=== PATIENT | male | born 1995 | race Caucasian/White ===

== ENCOUNTER 2017-06-21 08:19 | Emergency (ER) | payer OTHER ==
[2017-06-21 08:28] VITALS: BP 145/70
--- NOTE | 2017-06-21 09:10 | XRAY Report ---
EXAM: LEFT FIRST DIGIT RADIOGRAPHY EXAM DATE: 06/21/2017 08:56 AM. CLINICAL HISTORY: Thumb pain. Thumb injury. COMPARISON: None. TECHNIQUE: 3 views. FINDINGS: Bones: On the frontal view, there is slight cortical irregularity along the proximal third of the lef t first distal phalanx. No other osseous abnormalities. Joints: Normal. No subluxations. Soft Tissues: No radiopaque foreign bodies. IMPRESSION: 1. Possible nondisplaced left first distal phalanx fracture versus normal cortical contour irregulari ty creating artifact. [facility] Referring Provider Line: [phone] SITE ID: [id number]
--- NOTE | 2017-06-21 09:15 | ED Physician Documentation ---
PD HPI UPPER EXT INJURY - Stated complaint Stated Complaint: FINGER INJURY - Chief complaint Chief Complaint: Ext Problem - History obtained from History obtained from: Patient - History of Present Illness Location: Left, Finger (thumb) Type of injury: Crush Where injury occurred: Street Timing - onset: Today Timing - duration: Minutes Timing - details: Abrupt onset, Still present Improved by: Rest Worsened by: Moving, Palpating Associated symptoms: No: Weakness, Numbness, Tingling, Swelling Contributing factors: No: Anticoagulated Similar symptoms before: Diagnosis (subungal hematoma) Recently seen: Not recently seen - Additonal information Additional information: 21-year-old male who slammed his left thumb in a car door this morning and has a broken nail and some pain in his thumb. He states that the thumb does not hurt as much as expected and he has not had much in the way of bleeding. Review of Systems Constitutional: denies: Fever Respiratory: denies: Cough GI: denies: Vomiting Skin: denies: Rash Musculoskeletal: reports: Extremity pain. denies: Neck pain, Back pain Neurologic: denies: Generalized weakness, Focal weakness, Numbness PD PAST MEDICAL HISTORY - Past Medical History Past Medical History: No - Past Surgical History Past Surgical History: No - Present Medications Home Medications: Ambulatory Orders Medication Instructions Recorded Confirmed No Known Home Medications [No 06/21/17 06/21/17 Known Home Medications] - Allergies Allergies/Adverse Reactions: Allergies Allergy/AdvReac Type Severity Reaction Status Date / Time No Known Drug Allergies Allergy Verified 06/21/17 08:26 - Social History Does the pt smoke?: Yes Smoking Status: Current every day smoker - Immunizations Immunizations are current?: Yes PD ED PE NORMAL - Vitals Vital signs reviewed: Yes (hypertensive) - General General: No acute distress, Well developed/nourished - HEENT HEENT: Atraumatic - Respiratory Respiratory: No respiratory distress - Derm Derm: Normal color, Warm and dry, No rash - Extremities Extremities: Other (There is a fracture to the nail on the left thumb nail about mid thumbnail without continued bleeding and no deformitiy. The crack in the nail is aobut 1[address] the nail from the radial edge. ) - Neuro Neuro: No motor deficit, No sensory deficit Eye Opening: Spontaneous Motor: Obeys Commands Verbal: Oriented GCS Score: 15 - Psych Psych: Normal mood, Normal affect Results - Vitals Vitals: Vital Signs - 24 hr 06/21/17 08:23 Temperature 36.5 C Heart Rate 90 Respiratory 18 Rate Blood Pressure 145/70 H O2 Saturation 97 Oxygen O2 Source Room air - Rads (name of study) fingers Radiology: Prelim report reviewed (Impression: 1. Possible nondisplaced left first distal phalange fracture versus normal cortical contour irregularity creating artifact.), EMP read indepedently, See rad report PD MEDICAL DECISION MAKING - ED course Complexity details: reviewed results, re-evaluated patient, considered differential, d/w patient ED course: 21-year-old male is slammed his thumb in the car door and has cracked his nail on his thumb. The crack is partial the nail the nail is otherwise intact and there is no subungual hematoma. Bleeding is controlled and Dermabond was placed over the top of the crack in the nail. X-ray examination of the thumb to my evaluation does not show any evidence of a fracture. Departure - Departure Disposition: 01 Home, Self Care Clinical Impression: Nail avulsion Instructions: ED Avulsion Nail Complete Follow-Up: MEI Ramirez [Provider Group]
== END 2017-06-21 09:38 | disposition home or self-care (01) ==
LOC: EDBD → ED 08:19
DX: S61.012A Laceration without foreign body of left thumb without damage to nail, initial encounter (principal); W23.0XXA Caught, crushed, jammed, or pinched between moving objects, initial encounter; F17.200 Nicotine dependence, unspecified, uncomplicated
CPT/HCPCS: 73140; 99283